=== PATIENT | female | born 1950 | race Caucasian/White ===

== ENCOUNTER → 2023-02-27 | Outpatient (CLI) | payer MEDICARE, MEDICAID ==
[~2023-02-27] MED LIST: CATHETER FLUSH 10 ML SYR IVP PRN
--- NOTE | 2023-02-28 09:33 | Diagnostic Imaging Report ---
INDICATION: Subsequent staging lung carcinoma, breast carcinoma and lymphoma. Serum blood glucose level at the time of injection is 83 mg/dL. Patient was administered 9.1 mCi F-18 FDG intravenously in the right antecubital location and PET imaging was performed from the top of the skull to mid thighs. Noncontrast CT was also performed for attenuation correction and anatomic correlation. No prior PET/CT study is available for comparison. Comparison is made with outside CT from 11/01/2022. There is symmetric activity throughout the brain. The soft tissues of the neck including the supraclavicular regions are unremarkable. No pulmonary parenchymal hypermetabolism is seen. There is a small nodule in the anterior right upper lobe which does not show FDG avidity. No mediastinal or hilar hypermetabolism is identified. There is a large hiatal hernia. The abdomen and pelvis demonstrate physiologic activity throughout the gastrointestinal and genitourinary tracts. There is a cyst within the liver. No suspicious areas of hypermetabolism are identified. IMPRESSION: Essentially unremarkable PET/CT study. No suspicious areas of hypermetabolism are identified. Dictated by: Dictated on workstation # [id number]
== END ==
LOC: RAD 12:14
PROVIDERS: ATTEND Internal Medicine Hematology & Oncology
DX: C34.90 Malignant neoplasm of unspecified part of unspecified bronchus or lung (principal); C50.919 Malignant neoplasm of unspecified site of unspecified female breast
CPT/HCPCS: 78815; 82947; A9552

== ENCOUNTER → 2023-08-28 | Outpatient (CLI) | payer MEDICARE, MEDICAID ==
--- NOTE | 2023-08-28 15:54 | Diagnostic Imaging Report ---
INDICATION: Subsequent staging lymphoma. TECHNIQUE: Serum blood glucose level at the time of injection was 70 mg/dL. Patient was administered 10.5 mCi of F-18 FDG intravenously in the right forearm and PET imaging was performed from the top of the skull to the mid thighs. Noncontrast CT was also performed for attenuation correction and anatomic correlation. COMPARISON: Correlation is made with the prior PET/CT study from 02/27/2023. FINDINGS: Symmetric activity throughout the brain is noted. Soft tissues of the neck remain unremarkable. No mediastinal or hilar hypermetabolism is identified. No pulmonary parenchymal hypermetabolism is identified. There is a large hiatal hernia. Physiologic activity throughout the GI and tracts of the abdomen and pelvis is again noted. No hypermetabolic abdominal or pelvic lymphadenopathy is seen. Hepatic and renal cysts are again noted. IMPRESSION: Continued stable PET/CT study. No suspicious areas of hypermetabolism are identified. Dictated by: Dictated on workstation # [id number]
== END ==
LOC: RAD 11:23
PROVIDERS: ATTEND Internal Medicine Hematology & Oncology
DX: C88.0 Waldenstrom macroglobulinemia (principal)
CPT/HCPCS: 78815; 82947; A9552